=== PATIENT | female | born 1995 | race Two or more races ===

== ENCOUNTER 2018-11-07 11:15 | Emergency (ER) | payer MEDICAID ==
[~2018-11-07] VITALS: Ht 157.5 cm; Wt 40.8 kg
[2018-11-07 12:00] LABS: Urine Bacteria NONE SEEN /hpf (None Seen); Urine Blood Negative /uL (Negative); Urine Mucus FEW (None Seen); Urine Specific Gravity 1.019 (1.001-1.035); Urine WBC <1 /hpf (0 - 5)
[2018-11-07 13:13] VITALS: BP 114/77
== END 2018-11-07 14:05 | disposition home or self-care (01) ==
LOC: ER 11:23
DX: O20.0 Threatened abortion (principal); Z3A.01 Less than 8 weeks gestation of pregnancy
CPT/HCPCS: 36415; 76801; 76817; 81001; 81025; 84702

== ENCOUNTER → 2022-08-23 | Outpatient (CLI) | payer OTHER | END | disposition home or self-care (01) | LOC: LAB 13:35 | PROVIDERS: ATTEND Nurse Practitioner | DX: Z01.84 Encounter for antibody response examination (principal) | CPT/HCPCS: 36415; 86706; 86735; 86762; 86765; 86787 ==

== ENCOUNTER → 2023-05-15 | Outpatient (CLI) | payer OTHER | END | disposition home or self-care (01) | LOC: LAB 10:12 | PROVIDERS: ATTEND Nurse Practitioner | DX: Z01.84 Encounter for antibody response examination (principal) | CPT/HCPCS: 36415; 86706 ==